=== PATIENT | female | born 1955 | race Caucasian/White ===

== ENCOUNTER 2017-01-05 09:26 | Day surgery (SDC) | payer MEDICARE, MEDICAID ==
[~2017-01-05 09:26] MED LIST: ACTOS45 M1 PO; BENZTROPINE MESY1 M1 PO; BISCOLAX10 MG PO; BISMATROL PO; CALCIUM 600 +1 EA21 PO; COZAAR50 M1 PO; FEOSOL325 M1 PO; FLUOCINONIDE 0.60 GM TP; FLUOCINONIDE-E15 GM TP; GLUCOPHAGE XR500 M1 PO; LACTULOSE20 GM/30 M PO; MIRALAX17 G2 PO; SEROQUEL XR150 M1 PO; SEROQUEL25 M2 PO; TRIAMCINOLONE A15 G2 TP; TYLENOL EXTRA500 M1 PO; TYLENOL325 M2 PO
== END 2017-01-05 14:27 ==
LOC: SRG 09:26 → SHSB 09:31 → ORE 11:24 → PACU 12:41 → SHSB 13:15
PROC: 0CDXXZ0 Extraction of Lower Tooth, Single, External Approach (ICD-10-PCS; principal; 2017-01-05)
PROC: 0CDWXZ1 Extraction of Upper Tooth, Multiple, External Approach (ICD-10-PCS; 2017-01-05)
DX: K05.6 Periodontal disease, unspecified (principal); K04.7 Periapical abscess without sinus; R60.9 Edema, unspecified; I10 Essential (primary) hypertension; E11.9 Type 2 diabetes mellitus without complications; F41.9 Anxiety disorder, unspecified; G47.00 Insomnia, unspecified; Z79.84 Long term (current) use of oral hypoglycemic drugs; Z79.899 Other long term (current) drug therapy; Z98.890 Other specified postprocedural states